=== PATIENT | female | born 1960 | race African-American/Black ===

== ENCOUNTER 2018-07-18 06:46 | Day surgery (SDC) | payer OTHER ==
--- NOTE | 2018-07-17 10:10 | HP ---
HISTORY OF PRESENT ILLNESS: The patient is a 57-year-old female with a several year history of a painful mass on her right wrist without specific injury. She has been previously treated at [facility]. She has had several aspirations, underwent surgical excision in September 10, but she has had recurrence of the mass with pain and swelling, which is interfering with day-to-day activities. PAST MEDICAL HISTORY: The patient has a history of asthma, previous alcohol use. She has no major medical problems. CURRENT MEDICATIONS: Include Celexa. ALLERGIES: SHE IS ALLERGIC TO LATEX. FAMILY HISTORY: Otherwise, unremarkable. SOCIAL HISTORY: Otherwise, unremarkable. REVIEW OF SYSTEMS: Otherwise, unremarkable. PHYSICAL EXAMINATION: GENERAL: This is a healthy female. HEENT: Unremarkable. NECK: Supple. CHEST: Clear. HEART: Regular rate and rhythm. ABDOMEN: Soft, nontender. PELVIC, RECTAL, AND BREAST: Deferred. EXTREMITIES: Pertinent findings for the right wrist, there is a 3 x 2 cm cystic lobulated mass over the radial aspect of the right wrist, inability associated to radial artery. There is a healed radial incision. There is tenderness over the mass. There is full range of motion. NEUROVASCULAR: Intact. Balance testing reveals good collateral flow. DIAGNOSTIC STUDIES: X-rays of the right wrist are essentially normal. There is soft tissue swelling and may be some minimal degenerative changes of the distal pole of the scaphoid. IMPRESSION: Recurrent ganglion, right wrist. PLAN: Surgical excision. The nature of surgery, length of recovery, and potential complications such as infection, loss of motion, incomplete relief, neurovascular injury, recurrence, need for additional treatment, repeat surgery have been discussed in detail. Job ID: [id number]
[2018-07-17 12:48] VITALS: BMI 22.1
[2018-07-18 07:33] LABS: #Basophils 0.1 thou/uL (0.0-0.2); #Eosinphils 0.7 thou/uL (0.0-0.7); #Monocytes 0.6 thou/uL (0.11-0.59); #Neutrophils 2.4 thou/uL (1.40-6.50); %Basophils 1.7 % (0.0-1.0); %Eosinophils 10.8 % (0.0-10.0); %Lymphocytes 44.2 % (21.0-51.0); %Monocytes 8.2 % (0.0-10.0); %Neutrophils 35.1 % (42.0-75.0); Hemoglobin 12.3 g/dL (12.0-16.0); Mean Corpuscular HGB CONC 31.1 g/dL (32.0-36.0); Mean Corpuscular Hemoglobin 27.4 pg (27.0-31.0); Mean Corpuscular Volume 88.4 fL (78.0-98.0); Mean Platelet Volume 7.5 fL (7.4-10.4); Platelet Count 247 thou/uL (130-400); RBC Distribution Width 12.3 % (11.5-14.5); White Blood Cell (WBC) Count 6.8 thou/uL (4.8-10.8)
[2018-07-18] MEDS ORDERED: Sodium Chloride 0.9% 10 ML ONE (07:48)
[2018-07-18] MEDS ORDERED: Bupivacaine PF 0.5% 30 ML VIAL ONE (08:33)
[2018-07-18] MEDS ORDERED: Fentanyl 100 MCG/2 ML VIAL ONE (08:42)
[2018-07-18] MEDS ORDERED: Dexamethasone 20 MG/5 ML VIAL ONE (15:51)
[2018-07-18] MEDS ORDERED: Ondansetron PF 4 MG/2 ML Vial ONE (15:51)
[2018-07-18] MEDS ORDERED: Lidocaine 2% PF 5 ML VIAL ONE (15:51)
[2018-07-18] MEDS ORDERED: ePHEDrine 50 MG/ML VIAL ONE (15:51)
[2018-07-18] MEDS ORDERED: PROPOFOL 200 MG/20 ML VIAL ONE (15:51)
[2018-07-18] MEDS ORDERED: Ketorolac Tromethamine 30 MG/ML VIAL ONE (15:51)
--- NOTE | 2018-07-18 17:04 | OP ---
DATE OF PROCEDURE: 07/18/2018 ANESTHESIA: General. PREOPERATIVE DIAGNOSIS: Recurrent volar carpal ganglion, right wrist. POSTOPERATIVE DIAGNOSIS: Recurrent volar carpal ganglion, right wrist. PROCEDURE PERFORMED: Excision of volar carpal ganglion, right wrist. OPERATIVE FINDINGS: There was a multilobulated cystic mass consistent with a ganglion on the volar radial aspect of the wrist, inability associated with the radial artery. It appeared to be primarily coming from the flexor sheath of the flexor carpi radialis. There was a small stalk that went down toward the wrist joint. I could not detect the definitive connection to the wrist joint. The satisfactory excision was accomplished. DESCRIPTION OF PROCEDURE: After satisfactory anesthesia was induced in supine position, the patient was prepped and draped in routine manner. The right arm was elevated, and the tourniquet was inflated to 250 mmHg. A longitudinal incision over the volar mass was accomplished incorporating portion of the previous incision and carried this more proximally. This was carried down to subcutaneous tissues and bleeding points controlled with Bovie cautery. Using sharp and blunt dissection, the mass was identified in its entirety. Proximally, the radial artery was identified and followed distally. The mass was gently teased off the radial artery and communicating vessels were cauterized. A portion of the flexor tendon sheath of flexor carpi radialis tendon was removed with the mass, and the mass was excised in its entirety and sent to Pathology. There appeared to be good excision of the mass. The tourniquet was released after 29 minutes. Some additional bleeding points were controlled with Bovie cautery. The radial artery was palpable and pulsatile. The wound was thoroughly irrigated and infiltrated with 10 mL of 0.5% plain Marcaine and also irrigated with an additional 10 mL of 0.5% plain Marcaine. Subcutaneous tissues were closed with interrupted 3-0 Vicryl and the skin was closed with a running subcuticular 3-0 nylon. A sterile bulky compressive dressing was applied, and the patient immobilized in a volar plaster splint. She was awakened and taken to recovery room in stable condition. There were no apparent intraoperative complications. Estimated blood loss was negligible. The patient will be discharged home in satisfactory condition, started on ice and elevation, given written cast care instructions. She was given prescription for [place] 5 for pain, 30 tablets. She will be rechecked in my office in 2 weeks or sooner if there are any problems prior to that time. Job ID: [id number]
--- NOTE | 2018-07-20 07:11 | EKG ---
Test Reason : PREOP Blood Pressure : / mmHG Vent. Rate : 067 BPM Atrial Rate : 067 BPM P-R Int : 196 ms QRS Dur : 088 ms QT Int : 400 ms P-R-T Axes : 081 080 064 degrees QTc Int : 422 ms Normal sinus rhythm Normal ECG When compared with ECG of 15-APR-2015 13:01, No significant change was found Confirmed by FERN NOYOLA ([id number]) on 07/20/2018 7:10:23 AM Referred By: LAVON Confirmed By:FERN NOYOLA
== END 2018-07-18 12:20 | disposition home or self-care (01) ==
LOC: SDC 06:46
PROVIDERS: ATTEND Orthopaedic Surgery
PROC: 0LB50ZZ Excision of Right Lower Arm and Wrist Tendon, Open Approach (ICD-10-PCS; principal; 2018-07-18)
DX: M67.431 Ganglion, right wrist (principal); J45.909 Unspecified asthma, uncomplicated; Z79.899 Other long term (current) drug therapy; Z91.040 Latex allergy status
CPT/HCPCS: 85025; 88304; 93005; 93010; J0131; J0690; J1100; J1885; J2001; J2405; J2704; J3010; J3490; S0020

== ENCOUNTER 2018-07-23 11:05 | Outpatient (CLI) | payer OTHER ==
--- NOTE | 2018-08-22 09:49 | MMO ---
Bilateral MAMMO Bilat Screen [facility]. CLINICAL HISTORY: Patient is 58 years old and is seen for screening. The patient has no family history of breast cancer. The patient has no personal history of cancer. VIEWS: The views performed were: bilateral craniocaudal with tomosynthesis and bilateral mediolateral oblique with tomosynthesis. MAMMOGRAM FINDINGS: The breasts are heterogeneously dense, which could obscure a lesion on mammography. There are benign appearing calcifications seen in the left breast. There are no suspicious masses, suspicious calcifications, or new areas of architectural distortion. IMPRESSION: THERE IS NO MAMMOGRAPHIC EVIDENCE OF MALIGNANCY. A ROUTINE FOLLOW-UP MAMMOGRAM IN 1 YEAR IS RECOMMENDED. THE RESULTS OF THIS EXAM WERE SENT TO THE PATIENT. ACR BI-RADS Category 2 - Benign finding MAMMOGRAPHY NOTE: 1. A negative mammogram report should not delay a biopsy if a dominant of clinically suspicious mass is present. 2. Approximately 10% to 15% of breast cancers are not detected by mammography. 3. Adenosis and dense breasts may obscure an underlying neoplasm.
== END 2018-07-23 11:06 | disposition home or self-care (01) ==
LOC: BICMAMMO 11:05
PROVIDERS: ATTEND Family Medicine
DX: Z12.31 Encounter for screening mammogram for malignant neoplasm of breast (principal)
CPT/HCPCS: 77063; 77067